=== PATIENT | female | born 1955 | race Caucasian/White ===

== ENCOUNTER 2019-09-18 10:52 | Emergency (ER) | payer OTHER, MEDICAID ==
[~2019-09-18] VITALS: Ht 144.8 cm; Wt 117.2 kg
[2019-09-18 11:04] VITALS: BP 161/97
--- NOTE | 2019-09-18 11:08 | NUR ---
PT TO BED 12 WITH STEADY GAIT
[2019-09-18] MEDS ORDERED: NACL 0.9% 1,000 ML IV ONE (11:20)
[2019-09-18] MEDS ORDERED: KETOROLAC 15 MG/ML VIAL IVP ONE (11:20)
[2019-09-18] MEDS ORDERED: LOPERAMIDE 2 MG CAP PO ONE (11:20)
[2019-09-18] MEDS ORDERED: ONDANSETRON 4 MG/2 ML VIAL IVP ONE (11:20)
--- NOTE | 2019-09-18 11:22 | NUR ---
DR SALAZAR AT BEDSIDE
--- NOTE | 2019-09-18 11:22 | NUR ---
64 Y/O F WITH C/C OF FLU SYMPTOMS, N//V/D X1 DAY. PER PT GRANDSON SICK AT HOME. PT NOT UP TO DATE WITH FLU SHOT. PT HX HTN, CA REMISSION. RX PT DOES NOT KNOW MEDS BY MEMORY, TAKES FOR HTN. SIDE RAIL X1. FAMILY AT BEDSIDE.
--- NOTE | 2019-09-18 11:22 | NUR ---
FLU SWAP COLLECTED
[2019-09-18] MEDS ORDERED: hydrALAZINE 20 MG/ML VIAL IVP ONE (12:00)
[2019-09-18 12:04] LABS: APPEARANCE,URINE CLOUDY (CLEAR); BILIRUBIN,URINE NEGATIVE (NEGATIVE); BLOOD, URINE NEGATIVE (NEGATIVE); COLOR,URINE YELLOW (YELLOW); LEUKOCYTE ESTERASE ,URINE NEGATIVE (NEGATIVE); NITRITE, URINE NEGATIVE (NEGATIVE); PH,URINE 5.5 (5.0-9.0); UGLUCOSE NEGATIVE (NEGATIVE)
[2019-09-18 12:05] LABS: BASOPHILS % (AUTO) 0.4 % (0.0-2.0); EOSINOPHILS # (AUTO) 0.2 K/uL (0-0.4); EOSINOPHILS % (AUTO) 1.5 % (0.0-4.0); HEMATOCRIT 40.2 % (36-48); HEMOGLOBIN 12.9 g/dL (12.0-16.0); LYMPHOCYTES # (AUTO) 1.9 K/uL (2.5-16.5); LYMPHOCYTES % (AUTO) 16.3 % (20.5-51.1); MEAN CORPUSCULAR HEMOGLOBIN 28 pg (27-31); MEAN CORPUSCULAR HGB CONC 32 g/dL (33-37); MEAN CORPUSCULAR VOLUME 87.8 fL (80-94); MONOCYTES # (AUTO) 0.6 K/uL (0.8-1.0); MONOCYTES % (AUTO) 5.4 % (1.7-9.3); NEUTROPHILS # (AUTO) 8.8 K/uL (1.8-7.7); NEUTROPHILS % (AUTO) 76.4 % (42.2-75.2); PLATELET COUNT (AUTO) 243 K/uL (140-450); RED BLOOD CELL COUNT(AUTO) 4.58 MIL/uL (4.20-5.40); RED CELL DISTRIBUTION WIDTH 16.2 % (11.6-13.7); WHITE BLOOD COUNT (AUTO) 11.5 K/uL (4.8-10.8)
[2019-09-18 12:08] LABS: ALBUMIN 3.4 g/dL (3.4-5.0); ANION GAP 9.1 (8-16); CARBON DIOXIDE 29.8 mmol/L (21-32); POTASSIUM 4.9 mmol/L (3.5-5.1); TOTAL BILIRUBIN 0.7 mg/dL (0.0-1.0)
[2019-09-18 12:15] LABS: RBC,URINE NONE SEEN /HPF (0-5); WBC,URINE 0-5 /HPF (0-5)
--- NOTE | 2019-09-18 12:46 | NUR ---
PT RESTING IN BED, FAMILY AT BEDSIDE, SIDE RAIL X1
[2019-09-18 12:58] VITALS: BP 129/94
--- NOTE | 2019-09-18 12:58 | NUR ---
Patient discharged with v/s stable. Written and verbal after care instructions given and explained. Patient alert, oriented and verbalized understanding of instructions. Ambulatory with steady gait. All questions addressed prior to discharge. ID band removed. Patient advised to follow up with PMD. Rx of IMODIUM , ZOFRAN given. Patient educated on indication of medication including possible reaction and side effects. Opportunity to ask questions provided and answered.
--- NOTE | 2019-09-21 13:10 | NUR ---
Late entry. Confirmed with RN that 0.9 NS IV completed at 1250
== END 2019-09-18 12:58 | disposition home or self-care (01) ==
LOC: MED 10:52
DX: A05.9 Bacterial foodborne intoxication, unspecified (principal); R11.2 Nausea with vomiting, unspecified
CPT/HCPCS: 36415; 80053; 81001; 85025; 87804; 96361; 96374; 96375; 99283; J0360; J1885; J2405; J7030

== ENCOUNTER 2020-03-22 19:43 | Inpatient (IN) | payer OTHER, MEDICAID ==
[~2020-03-22] VITALS: Ht 147.3 cm; Wt 113.4 kg
[2020-03-22 19:50] VITALS: BP 133/71
[2020-03-22 20:27] LABS: BASOPHILS % (AUTO) 0.3 % (0.0-2.0); EOSINOPHILS # (AUTO) 0.1 K/uL (0-0.4); EOSINOPHILS % (AUTO) 0.6 % (0.0-4.0); HEMATOCRIT 39.8 % (36-48); HEMOGLOBIN 13.4 g/dL (12.0-16.0); LYMPHOCYTES # (AUTO) 1.8 K/uL (2.5-16.5); LYMPHOCYTES % (AUTO) 13.3 % (20.5-51.1); MEAN CORPUSCULAR HEMOGLOBIN 29 pg (27-31); MEAN CORPUSCULAR HGB CONC 34 g/dL (33-37); MEAN CORPUSCULAR VOLUME 85.9 fL (80-94); MONOCYTES # (AUTO) 1.1 K/uL (0.8-1.0); MONOCYTES % (AUTO) 8.2 % (1.7-9.3); NEUTROPHILS # (AUTO) 10.2 K/uL (1.8-7.7); NEUTROPHILS % (AUTO) 77.6 % (42.2-75.2); PLATELET COUNT (AUTO) 255 K/uL (140-450); RED BLOOD CELL COUNT(AUTO) 4.64 MIL/uL (4.20-5.40); WHITE BLOOD COUNT (AUTO) 13.2 K/uL (4.8-10.8)
[2020-03-22 20:42] LABS: ALBUMIN 3.3 g/dL (3.4-5.0); CARBON DIOXIDE 29.4 mmol/L (21-32); CREATININE 1.7 mg/dL (0.6-1.3); POTASSIUM 4.4 mmol/L (3.5-5.1); TOTAL BILIRUBIN 0.5 mg/dL (0.0-1.0)
--- NOTE | 2020-03-22 21:48 | NUR ---
KANWAL MONTESINOS AT BEDSIDE EVALUATING PT.
--- NOTE | 2020-03-22 21:48 | NUR ---
PT AMBULATED TO [facility] WITH STEADY GAIT.
--- NOTE | 2020-03-22 21:50 | NUR ---
64 Y/O FEMALE PRESENTED TO ED C/O RUQ, LUQ ADB PAIN WITH N/V/D X 1 WEEK. PER PT, POSSIBLE FOOD POISONING X 1 WEEK. PT STATES SHE WAS SUPPOSED TO GO TO PCP BUT THE PAIN BECAME TOO SEVER. PT ABD PAIN 10/10 , CONSTANT SHARPNESS. PALPATED MASS ON ABD. PT RUQ/LUQ BS HYPOACTIVE. PT ABD SOFT, ROUND AND NONTENDER. PT BREATHING EVEN AND UNLABORED. PT DENIES FEVER/BODY ACHES / CHILLS. VSS. PT RESTING IN BED, LOCKED AND IN LOWEST POSITION, HOB ELEVATED, SIDE RAIL X1. PMHX: COLON CANCER, HTN, HLD, BORDERLINE DIABETIC, UMBILICAL HERNIA RX: METFORMIN NKA
[2020-03-22] MEDS ORDERED: ONDANSETRON 4 MG/2 ML VIAL IVP ONE (21:55)
[2020-03-22] MEDS ORDERED: MORPHINE SULFATE 4 MG/ML SYR IVP ONE (21:55)
[2020-03-22] MEDS ORDERED: NACL 0.9% 1,000 ML IV ONE (21:55)
--- NOTE | 2020-03-22 22:30 | NUR ---
PT RESTING IN BED, LOCKED AND IN LOWEST POSITION, HOB ELEVATED, SIDE RAIL X1. VSS.
[2020-03-22] MEDS ORDERED: ONDANSETRON 4 MG/2 ML VIAL IVP PRN (23:05)
[2020-03-22] MEDS ORDERED: HYDROcodone/APAP 7.5/325 MG 1 TAB PO PRN (23:05)
[2020-03-22] MEDS ORDERED: ACETAMINOPHEN 325 MG TAB PO PRN (23:05)
[2020-03-22 23:08] LABS: APPEARANCE,URINE CLEAR (CLEAR); BILIRUBIN,URINE 2+ (NEGATIVE); BLOOD, URINE NEGATIVE (NEGATIVE); COLOR,URINE YELLOW (YELLOW); LEUKOCYTE ESTERASE ,URINE NEGATIVE (NEGATIVE); NITRITE, URINE NEGATIVE (NEGATIVE); UGLUCOSE NEGATIVE (NEGATIVE)
[2020-03-22] MEDS ORDERED: DEXTROSE 50% 50 ML SYR IVP PRN (23:40)
[2020-03-22] MEDS ORDERED: INSULIN LISPRO SLIDING SCALE 100 UNITS/ML VIAL SUBQ PRN (23:40)
[2020-03-22 23:47] LABS: PROTHROMBIN TIME 9.6 secs (10.8-13.4)
[2020-03-22] MEDS ORDERED: MORPHINE SULFATE 2 MG/ML SYR IVP PRN (23:50)
[2020-03-22 23:53] LABS: BARBITURATE, URINE NEGATIVE ng/ml (NEG <=200); BENZODIAZEPINE, URINE NEGATIVE ng/mL (NEG <=200); CANNABINOID, URINE NEGATIVE ng/mL (NEG <=50); COCAINE, URINE NEGATIVE ng/mL (NEG <=300); OPIATE, URINE NEGATIVE ng/mL (NEG <=2000); PHENCYCLIDINE SCREEN,URINE NEGATIVE ng/mL (NEG <=25)
[2020-03-23] MEDS ORDERED: CIPR500T4 PO (00:04)
[2020-03-23] MEDS ORDERED: CHOL200035 PO (00:04)
[2020-03-23] MEDS ORDERED: LISI-420 PO (00:04)
[2020-03-23] MEDS ORDERED: METF500T2 PO (00:04)
[2020-03-23] MEDS ORDERED: IMO2 PO (00:04)
[2020-03-23] MEDS ORDERED: ATOR40TA PO (00:04)
--- NOTE | 2020-03-23 00:30 | NUR ---
PT LAYING SUPINE IN BED. VSS. RR EVEN AND UNLABORED. PT REPORTS NO PAIN AT THIS TIME. BED IN LOWEST POSITION. WILL CONTINUE TO MONITOR.
--- NOTE | 2020-03-23 00:39 | NUR ---
PT TAKEN TO BED # 11 VIA GURNEY.
[2020-03-23 00:57] LABS: FREE T4 (FREE THYROXINE) 1.57 ng/dL (0.76-1.46); MAGNESIUM 2.2 mg/dL (1.8-2.4); PHOSPHORUS 3.5 mg/dL (2.5-4.9); THYROID STIMULATING HORMONE 1.76 uIU/mL (0.34-3.74)
--- NOTE | 2020-03-23 04:05 | NUR ---
PT SLEEPING IN BED, AROUSABLE BY VERBAL STIMULATION, BED LOCKED AND IN LOWEST POSITION, HOB ELEVATED, SIDE RAILS X 1. VSS.
--- NOTE | 2020-03-23 04:38 | NUR ---
PT AMBULATED TO RESTROOM W/ STEADY GAIT.
--- NOTE | 2020-03-23 04:45 | NUR ---
PT AMBULATED FROM RESTROOM TO BED #11 W/ STEADY GAIT. PT PLACED IN GOWN. PT RESTING IN BED, LOCKED AND IN LOWEST POSITION, HOB ELEVATED, SIDE RAIL X1 PER PT REQUEST. PT BREATHING EVEN AND UNLABORED. VSS.
[2020-03-23 07:05] VITALS: BP 136/54
--- NOTE | 2020-03-23 07:05 | NUR ---
RECEIVED PATIENT FROM ED NURSE FOR ADMISSION AND CONTINUITY OF CARE VIA WHEELCHAIR. PATIENT IS AAOX4, KYRGYZ SPEAKING. NO SIGNS OF DISTRESS NOTED. RESPIRATIONS EVEN AND UNLABORED, ON ROOM AIR. VISIBLE CHEST RISE AND FALL NOTED. SKIN WARM, DRY, AND INTACT. IV IN THE L AC G20, SALINE LOCK. PATIENT IS CONTINENT. ABD SOFT AND NONTENDER. PATIENT C/O OF TOLERABLE ABD PAIN OF 5/10.AMBULATORY. SAFETY MEASURES IN PLACE. ON STANDARD PRECAUTION . NPO EXCEPT MEDS. BED IN LOW POSITION. CALL LIGHT IS WITHIN REACH. WILL CONTINUE TO MONITOR.
--- NOTE | 2020-03-23 07:05 | NUR ---
Patient will be admitted to care of DR. VILLAR. Admited to [facility]. Will go to room 110A . Belongings list completed. Report to KYM CARLSON.
--- NOTE | 2020-03-23 07:17 | NUR ---
PATIENT HAS BEEN SCREENED AND CATEGORIZED HIGH NUTRITION RISK. PATIENT WILL BE SEEN WITHIN 1-2 DAYS OF ADMISSION. 03/24/20-03/25/20 PARIS HUMPHREYS MS, RDN
[2020-03-23] MEDS: BLOOD GLUCOSE MONITORING 1 DEV DEV FS SCH ×2 (08:28→11:18)
--- NOTE | 2020-03-23 08:29 | NUR ---
BLOOD SUGAR CHECKED: 117. NO INSULIN COVERAGE NEEDED. COLACE GIVEN PO. GIVEN MEDICATION EDUCATION. PATIENT VERBALIZED UNDERSTANDING.
[2020-03-23] MEDS ORDERED: MORPHINE SULFATE 2 MG/ML SYR IVP PRN (08:55)
[2020-03-23] MEDS ORDERED: DEXT 5% /NACL 0.9% 1,000 ML IV SCH (08:55)
[2020-03-23] MEDS ORDERED: DOCUSATE SODIUM 100 MG GELCAP PO PRN (08:55)
[2020-03-23] MEDS ORDERED: POTASSIUM CHLORIDE 10 MEQ TABER PO PRN (08:55)
[2020-03-23] MEDS ORDERED: MAG SULF 2000 MG/WATER PREMIX 50 ML IV PRN (08:55)
[2020-03-23] MEDS ORDERED: ONDANSETRON 4 MG/2 ML VIAL IVP PRN (08:55)
[2020-03-23] MEDS ORDERED: LORazepam 2 MG/ML VIAL IVP PRN (08:55)
[2020-03-23] MEDS ORDERED: ACETAMINOPHEN 325 MG TAB PO PRN (08:55)
[2020-03-23] MEDS ORDERED: ZOLPIDEM 10 MG TAB PO PRN (08:55)
[2020-03-23] MEDS ORDERED: DOCUSATE SODIUM 100 MG GELCAP PO SCH (09:00)
--- NOTE | 2020-03-23 09:00 | NUR ---
HUNG D5NS AT 90 ML/HR PER MD ORDER
--- NOTE | 2020-03-23 10:23 | NUR ---
GIVEN HEPARIN SUBQ IN THE ABDOMEN. PLATELET IS 255. PATIENT TOLERATED WELL.
--- NOTE | 2020-03-23 11:18 | NUR ---
BLOOD SUGAR CHECKED: 131. NO INSULIN COVERAGE NEEDED.
--- NOTE | 2020-03-23 12:38 | NUR ---
GIVEN MORPHINE FOR 8/10 ABD PAIN. EXPLAINED MEDICATION. PATIENT VERBALIZED UNDERSTANDING. PATIENT STATING SHE WANTS TO SIGN HERSELF OFF. WILL LET DR. BRADY AWARE.
--- NOTE | 2020-03-23 12:45 | NUR ---
DR. BRADY SPEAKING WITH THE PATIENT REGARDING RISK AND BENEFITS OF GOING AGAINST MEDICAL ADVICE.
--- NOTE | 2020-03-23 12:50 | NUR ---
PATIENT SIGNED AMA PAPERWORK AFTER DR. BRADY SPOKE TO HER ABOUT THE RISK AND BENEFITS OF GOING AMA.
--- NOTE | 2020-03-23 12:57 | NUR ---
DISCONTINUED IV ACCESS. MINIMAL BLEEDING. REMOVED ID BAND. PATIENT IS CHANGING TO HOME CLOTHES. WAITING FOR DAUGHTER TO PICK HER UP.
--- NOTE | 2020-03-23 13:30 | NUR ---
DISCHARGE PATIENT VIA WHEELCHAIR. PATIENT IS IN STABLE CONDITION.
== END 2020-03-23 13:41 | disposition left against medical advice (07) | DRG 388 ==
LOC: MED 19:43 → MMU 23:46 → MTU 03-23 04:31
PROVIDERS: ADMIT General Practice; ATTEND General Practice
DX: K56.609 Unspecified intestinal obstruction, unspecified as to partial versus complete obstruction (principal); N17.0 Acute kidney failure with tubular necrosis; Z68.43 Body mass index [BMI] 50.0-59.9, adult; K56.7 Ileus, unspecified; E78.5 Hyperlipidemia, unspecified; E66.01 Morbid (severe) obesity due to excess calories; K43.9 Ventral hernia without obstruction or gangrene; I10 Essential (primary) hypertension; E11.9 Type 2 diabetes mellitus without complications; Z53.29 Procedure and treatment not carried out because of patient's decision for other reasons; Z85.038 Personal history of other malignant neoplasm of large intestine; Z92.21 Personal history of antineoplastic chemotherapy; Z90.49 Acquired absence of other specified parts of digestive tract
CPT/HCPCS: 36415; 80053; 80305; 81003; 82948; 83036; 83690; 83735; 83880; 84100; 84439; 84443; 84484; 85025; 85610; 85730; 87081; 96361; 96374; 96375; 99285; J1644; J2270; J2405; J7042